=== PATIENT | male | born 1945 | race Caucasian/White ===

== ENCOUNTER 2017-11-24 05:28 | Inpatient (IN) ==
[2017-11-24] MEDS ORDERED: CEFAZOLIN 1 G INJECTION IVP ONE (05:42)
[2017-11-24 05:48] VITALS: BMI 29.7
[2017-11-24] MEDS ORDERED: LIDOCAINE 1% (10mg/ml) 2mL INJ PF SDV ID ONE (06:00)
[2017-11-24] MEDS ORDERED: FAMOTIDINE PB 20 MG/50 ML BAG IV ONE (06:00)
[2017-11-24] MEDS ORDERED: TRANEXAMIC ACID 1,000 MG in NS 100 ML IV ONE ×2 (06:00→07:00)
[2017-11-24] MEDS ORDERED: ACETAMINOPHEN 500 MG TABLET PO ONE (06:00)
[2017-11-24] MEDS ORDERED: DEXAMETHASONE 4 MG/ML INJECTION IVP ONE (06:00)
[2017-11-24] MEDS ORDERED: ONDANSETRON 4 MG/2 ML INJECTION IVP ONE (06:00)
[2017-11-24] MEDS ORDERED: METOCLOPRAMIDE 10mg/2ml INJECTION IVP ONE (06:00)
[2017-11-24] MEDS: LR 1,000 ML IV SCH ×3 (06:19→08:20)
[2017-11-24] MEDS ORDERED: VANCOMYCIN 1,000 MG INJECTION ONE (06:31)
--- NOTE | 2017-11-24 06:45 | Anesthesia Preoperative Report ---
Anesthesia Preoperative Record - Date and Time Date: 11/24/17 Preoperative Diagnosis: Lt TKA M17.12 primary osteoarthritis Proposed Procedure: left knee arthroplasty NPO Since Date: 11/23/17 NPO Since Time: 23:00 Allergies/Adverse Reactions: Allergies Allergy/AdvReac Type Severity Reaction Status Date / Time No Known Allergies Allergy Unknown Verified 11/24/17 06:01 - Vital Signs Vital Signs: Temperature 97.7 F 11/24/17 05:45 Pulse Rate 84 11/24/17 06:08 Respiratory Rate 15 11/24/17 05:45 Blood Pressure 135/88 11/24/17 05:45 Pulse Oximetry 92 11/24/17 06:18 Height and Weight: Height 1.78 m Weight 94 kg Body Mass Index 29.7 - Medications Inpatient Medications: Current Medications Epinephrine HCl 0.25 mg/Bupivacaine HCl 30 ml/Ketorolac Tromethamine 60 mg/ Sodium Chloride 62.25 mls @ 0 mls/hr OPSITE INTRAOP ONE; Per Protocol PRN Reason: Protocol Stop: 11/24/17 08:01 Tranexamic Acid 1,000 mg/ (Sodium Chloride) 110 mls @ 660 mls/hr IV INTRAOP ONE Stop: 11/24/17 07:09 Lactated Ringer's (Lactated Ringers) 1,000 mls @ 50 mls/hr IV .Q20H REPLACED BY [facility] Last Admin: 11/24/17 06:19 Dose: 50 mls/hr Isopropyl Alcohol (Nozin Nasal Swab) 1 each JEAN-PAUL Q1M REPLACED BY [facility] Stop: 11/24/17 13:03 Sodium Chloride (Iv Flush) 10 - 80 ml IV PRN PRN PRN Reason: Flushing Home Medications: Home Medications Medication Instructions Recorded Confirmed Type Albuterol HFA Inhaler [Ventolin 2 puff ORAL INH Q4H PRN #1 inhaler 04/18/1710/07 Rx Hfa 90 mcg/actuation] Claritin (Loratadine) 10 mg tablet 10 mg PO Q24H 04/23/17 11/23/17 History Flonase (Fluticasone) 50 mcg nasal 2 spray INTRANASAL DAILY PRN g 04/23/1710/07 History spray Lipitor (atorvastatin) 40 mg tablet 40 mg PO DAILY tab 04/23/17 11/23/17 History Mucinex (Guaifenesin) 1,200 mg 1,200 mg PO Q12H PRN 04/23/17 11/23/17 History tablet, ER 12 hr Tylenol Arthritis 650 mg 650 mg PO Q6HPRN PRN 04/23/17 11/23/17 History tablet,extended release ascorbic acid (vitamin C) 500 mg 500 mg PO DAILY tab 04/23/17 11/23/17 History tablet aspirin 81 mg tablet,delayed 81 mg PO DAILY tab 04/23/17 11/23/17 History release cxiqbyinndhkymqv-bylkpyjpk-zakleme 1 each PO Q4HPRN PRN each 04/23/17 11/23/17 History 2 mg-7.8 mg-325 mg efferves. tablet glucosamine-chondroitin 250 mg-200 2 tab PO DAILY tab 04/23/17 11/23/17 History mg tablet multivitamin tablet 1 tab PO QAM 04/23/17 11/23/17 History omega-3 fatty acids 500 mg capsule 500 mg PO DAILY cap 04/23/17 11/23/17 History vitamin B complex capsule 1 cap PO DAILY cap 04/23/17 11/23/17 History vitamin E (dl, acetate) 400 unit 400 unit PO DAILY cap 04/23/17 11/23/17 History capsule zinc 50 mg tablet 50 mg PO DAILY tab 04/23/17 11/23/17 History Mobic (Meloxicam) 7.5 mg tablet 7.5 mg PO BID PRN #180 tab 10/12/17 11/23/17 Rx Tiotropium Handihaler [Spiriva] 18 mcg INH HS 11/09/17 11/23/17 History Triderm (Triamcinolone acetonide 1 applicatio TOP BID 10 Days #30 g 11/23/1710/07 Rx 0.1 %) topical cream - Medical History Respiratory: Reports: Chronic Obstructive Pulmonary Disease (COPD) DENIES: Sleep Apnea Cardiovascular: Reports: High Cholesterol Gastrointestional: Reports: Gastroesophageal Reflux Disease, Ulcer (H Pylori treated years ago) Neuro/Musculoskeletal: Reports: Back Problems Renal/Endocrine: Reports: Other ('prediabetic') - Surgical History HEENT Surgeries: Reports: Tonsillectomy GI Surgery/Treatments: Reports: Hernia Repair (x2) Musculoskeletal Surgery/Tx: Reports: Orthopedic Surgery (right elbow; right hand surgery), Other (lumbar surgery with hardware) Anesthesia Reactions: Other (takes awile waking up ) Hx Family Anesthesia Reaction: No History of Motion Sickness: No - Social History Smoking Status: Current every day smoker Substance Use Type: does not use Alcohol Intake: current Alcohol Intake Frequency: holidays/special occasions only - Pertinent Findings Laboratory: CBC and BMP 11/24/17 05:52 11/24/17 05:52 BMP 11/24/17 05:52 Sodium 146 H Potassium 3.9 Chloride 109 H Carbon Dioxide 25 BUN 18.0 Creatinine 1.1 Glucose 104 Calcium 9.2 EKG: Sinus Rhythm - Physical Exam Respiratory Exam: Present: wheezing Cardiovascular Exam: Present: regular rate and rhythm, no murmur - Airway Assessment Mallampati Score: I TMD: 3 Fingerbreadths Neck Extension: fair Teeth: upper dentures Overall Assessment: no airway concerns - ASA ASA Score: 3 - Plan Anesthesia: General Inhalation Gases Regional/Trunk Block: Spinal - Discussion Discussion: Discussed risks/options/alternatives of anesthesia and questions answered. Patient consents. Nursing pain assessment noted. Attestation Statement: Prior to the delivery of any anesthetic medication, I examined the patient, developed the plan, obtained the patient's consent and discussed the risk and benefits of the procedure with the patient/guardian. - Additional Information Seen by Anesthesia: Yes
[2017-11-24] MEDS: NOZIN NASAL SWAB NAS SCH ×5 (06:49→21:24)
[2017-11-24] MEDS ORDERED: PROPOFOL 20 ML ONE (07:03)
[2017-11-24] MEDS ORDERED: FentaNYL 250 MCG/5 ML INJECTION ONE (07:03)
[2017-11-24] MEDS ORDERED: MIDAZOLAM 2mg/2ml INJECTION ONE ×2 (07:03→08:27)
[2017-11-24] MEDS ORDERED: DiphenhydrAMINE 50 MG/ML INJECTION ONE (07:05)
[2017-11-24] MEDS ORDERED: LIDOCAINE 2% (100mg/5mL) 5ml PF SDV ONE (07:06)
[2017-11-24] MEDS ORDERED: BUPIVACAINE 0.75%/DEXTROSE 8.5% SPINAL 2 ML AMPULE IJ ONE (07:06)
[2017-11-24] MEDS ORDERED: KETAMINE 500 MG/10 ML INJECTION ONE (07:10)
[2017-11-24] MEDS ORDERED: EPINEPHrine PF 0.25 MG, BUPIVACAINE 0.25% PF 30 ML, KETOROLAC INJ 60 MG in NS 30 ML OPSITE ONE (08:00)
--- NOTE | 2017-11-24 08:41 | History & Physical Update ---
- History and Physical Update Date: 11/24/17 Update: I evaluated this patient and found no changes in the history and clinical exam findings. The treatment plan and recommendations are also unchanged from the previous documentation. Anticipated hospital stay longer than 2 nights due to ASA 3, CPOD/Emphysema ( wheezing and coarse on admission), GERD, pre-diabetes. For this reason patient was changed to inpatient status.
--- NOTE | 2017-11-24 08:46 | Operative Note ---
- Procedure Preoperative Diagnosis: Left knee primary degenerative joint disease Postoperative Diagnosis: Same as preoperative diagnosis. Surgeon: Cheo Chaidez MD Computer Information Science Professor: Nathan Beltran Complications: None. Anesthesia: Spinal. Estimated Blood Loss: See Anesthesia Record. Fluids: Please see Anesthesia Record. Desciption of Procedure: Mr. Dailey and his left knee were identified and marked in the preoperative holding area. He was brought back to the operating suite. Spinal anesthetic was administered and he was placed supine on the operating table. The left lower extremity was prepped and draped in my normal sterile fashion. Timeout was performed. The Lucibel robotic arm was used during the surgery. He had a partially correctable varus deformity with a 7 flexion contracture. A standard anterior midline incision followed by medial parapatellar arthrotomy was performed. Anterior fat pad and meniscus were removed. The patella was everted and a patellar osteotomy was performed leaving 15 mm of bone. Tibial and femoral arrays and checkpoints were placed both within the original incision. The bone was then registered with the Lucibel robot. Osteophytes were removed and gaps were captured both 90 and 0 with correction. His knee was balanced by lacing the tibial component and 2 of varus in the femoral component and 1 of varus the femoral component was also externally rotated 2 degrees relative to the epicondylar axis. The Lucibel robotic arm was then used to assist with the bone cuts. Posterior osteophytes and remaining meniscus were removed. Trial components were placed. We used a 7 femur and a 6 tibia with a 9 mm spacer and a 35 patella. He tracked well and was well balanced throughout range of motion. The arrays were then removed and the knee exsanguinated and the tourniquet inflated to 250 mmHg. The tibia was then stamped the proper rotation. I then cemented the components into place and allowed them to cure in extension. During this time the tourniquet was let down and hemostasis was obtained with electrocautery. After the cement had cured the knee again was taken through range of motion and was well balanced and tracked well. After a final thorough irrigation with normal saline as well as Betadine 1 g vancomycin powder was placed into the knee joint. We then closed the capsule with #1 Vicryl. I then left my assistant chief train dispatcher closed the subcutaneous tissue with both 2-0 Vicryl in an interrupted fashion as well as a running 0 V-lock barbed suture. The subcutaneous tissue closed with a gaston Monoderm. Mediplex dressing will be placed and the patient will be taken back to the recovery room under the care of anesthesia.
[2017-11-24] MEDS ORDERED: VANCOMYCIN 1,000 MG INJECTION IAR ONE (08:50)
[2017-11-24] MEDS ORDERED: ROPIVACAINE 0.5% (5mg/ml) 30ml INJ ONE (09:00)
[2017-11-24] MEDS ORDERED: ALBUTEROL 2.5mg/3ml (0.083%) NEB AEROSOL PRN ×2 (09:16→10:03)
--- NOTE | 2017-11-24 09:32 | Anesthesia Procedure Note ---
Peripheral Nerve Blockade - Procedure Physician: Domenic Chaidez MD Date: 11/24/17 Surgical Procedure: left total knee arthroplasty Discussion: Discussed risks/options/alternatives of anesthesia and questions answered. Patient consents. Nursing pain assessment noted. Block Start: 09:20 Block Stop: 09:22 Blocked Employed: Adductor Canal Indication: Post-Operative Pain Approach: Left Side Confirmed Position: Supine Patient: Consent, Risks/Benefits Discussed, Informed, Post Block Act. Discussed IV Sedation: No Initial Vital Signs: Temperature 97.7 F 11/24/17 05:45 Temperature Source Oral 11/24/17 05:45 Pulse Rate 88 11/24/17 05:45 Respiratory Rate 15 11/24/17 05:45 Blood Pressure 135/88 11/24/17 05:45 Blood Pressure Mean 103 11/24/17 05:45 Blood Pressure Position Sitting 11/24/17 05:45 Pulse Oximetry 91 11/24/17 05:45 Oxygen Delivery Method 11/24/17 05:45 Post Vital Signs: Temperature 97.7 F 11/24/17 05:45 Pulse Rate 84 11/24/17 06:08 Respiratory Rate 15 11/24/17 05:45 Blood Pressure 135/88 11/24/17 05:45 Pulse Oximetry 92 11/24/17 06:18 Initial Pain Pain Score: 0 Post Block Pain Score: 0 Prep: Chlorhexadine/ETOH Ultrasound Used?: Yes - Injectate Ropivacaine (%): 0.5 Ropivacaine (mL): 15 Was Epi 1:200,000 Used?: No Injection: Injection made incrementally with constant monitoring and aspiration every ml
--- NOTE | 2017-11-24 09:33 | Anesthesia Postoperative Note ---
- Date and Time Date: 11/24/17 Time: 09:24 - Status Patient Participated in Evaluation: Patient Participated in Person Vital Signs: Temperature 97.7 F 11/24/17 05:45 Pulse Rate 84 11/24/17 06:08 Respiratory Rate 14 11/24/17 09:20 Blood Pressure 135/88 11/24/17 05:45 Pulse Oximetry 100 11/24/17 09:20 Respiratory Function: Airway Patent Cardiovascular Function: Regular Pulse EKG: Sinus Rhythm Pain Intensity: 0 Hydration: IV Infusing Complications During Recover: None Apparent - Follow-Up Instructions Instructions: Per Surgeon
--- NOTE | 2017-11-24 09:41 | XRay Report ---
Indication: postoperative image PROCEDURE: XR knee LT 2V: Encounter: Initial Comparison: September 07, 2017 Findings: Postoperative changes of left total knee replacement are seen. There is expected postoperative subcutaneous gas. No evidence of hardware failure or acute fracture. No retained radiopaque surgical instruments or sponges. Overlying material causing artifact. Impression: New left total knee prosthesis without evidence of immediate complication. .
[2017-11-24] MEDS ORDERED: MELOXICAM 7.5 MG TABLET PO PRN (09:52)
[2017-11-24] MEDS ORDERED: DiphenhydrAMINE 25 MG CAPSULE PO PRN (09:52)
[2017-11-24] MEDS ORDERED: LORazepam 1 MG TABLET PO PRN (09:52)
[2017-11-24] MEDS ORDERED: NOZIN NASAL SWAB NAS ONE (09:52)
[2017-11-24] MEDS ORDERED: DiphenhydrAMINE 50 MG/ML INJECTION IVP PRN (09:52)
[2017-11-24] MEDS ORDERED: GUAIFENESIN 1200 MG PO PRN (09:52)
[2017-11-24] MEDS ORDERED: ONDANSETRON 4 MG/2 ML INJECTION IVP PRN (09:52)
[2017-11-24] MEDS: NS 1,000 ML IV SCH ×2 (09:57→21:51)
[2017-11-24] MEDS ORDERED: GUAIFENESIN LA 600 MG TABLET PO PRN (10:10)
[2017-11-24] MEDS ORDERED: ALBUTEROL/IPRATROPIUM 2.5mg-0.5mg/3ml NEB AEROSOL PRN (11:07)
[2017-11-24] MEDS: Oxycodone *IR* 5 MG TABLET PO PRN ×4 (11:36→21:27)
[2017-11-24] MEDS: LORATADINE 10 MG TABLET PO SCH (11:43)
[2017-11-24] MEDS: ACETAMINOPHEN 325 MG TABLET PO SCH ×3 (12:24→20:01)
[2017-11-24] MEDS ORDERED: SALINE FLUSH 10ml SYRINGE IV PRN (13:00)
[2017-11-24] MEDS: CEFAZOLIN 2 G in NS 100 ML IV SCH ×2 (14:20→22:48)
[2017-11-24] MEDS ORDERED: Ipratropium Inh NEB 0.02% (0.5mg/2.5ml) AEROSOL SCH (15:00)
[2017-11-24] MEDS: DOCUSATE SODIUM 100 MG CAPSULE PO SCH (20:01)
[2017-11-24] MEDS: ASPIRIN *EC* 81 MG TABLET PO SCH (20:01)
[2017-11-24] MEDS ORDERED: ATORVASTATIN 40 MG TABLET PO SCH (21:00)
[2017-11-24] MEDS ORDERED: TIOTROPIUM 18mcg/cap HANDIHALER ORAL INH SCH (21:00)
[2017-11-24] MEDS ORDERED: SENNOSIDES 8.6 MG TABLET PO SCH (21:00)
[2017-11-24] MEDS: ALBUTEROL/IPRATROPIUM 2.5mg-0.5mg/3ml NEB AEROSOL SCH (22:21)
[2017-11-25] MEDS: Oxycodone *IR* 5 MG TABLET PO PRN ×2 (02:33→08:41)
[2017-11-25] MEDS: NOZIN NASAL SWAB NAS SCH (05:06)
[2017-11-25] MEDS ORDERED: ALBUTEROL/IPRATROPIUM 2.5mg-0.5mg/3ml NEB AEROSOL SCH (07:00)
[2017-11-25] MEDS: ALBUTEROL/IPRATROPIUM 2.5mg-0.5mg/3ml NEB AEROSOL SCH ×2 (07:07→12:34)
[2017-11-25 07:35] VITALS: O2SAT 95
--- NOTE | 2017-11-25 08:35 | Orthopedic Progress Note ---
Date: Date: 11/25/17 Time: 810 Subjective/Severity of Illness: Pt is seen on morning rounds. He had nasal congestion overnight that was fairly severe for him. It improved when he was out of his room and would worsen within minutes of going back in his room. Pt denies feeling SOA but just can't breathe through his nose. He also admits to feeling a little anxious. His stayed until about 4:30 this AM and pt said his anxiety worsened when she went home. Pt admits that he doesn't always use his inhalers at home. His says he coughs every night at home and the two of them don't agree on the frequency of his breathing treatments. Denies CP but has a chronic cough. He has been up and knee pain is not much of an issue. He has several cans of pop, coffee and water on his bedside table but he doesn' t remember drinking any of it. No confusion has been documented and he is clear on exam this AM. Orthopedic Exam Vital signs: Temperature 96.2 F L 11/25/17 07:34 Pulse Rate 65 11/25/17 07:34 Respiratory Rate 22 11/25/17 07:34 Blood Pressure 137/68 11/25/17 07:34 Pulse Oximetry 95 11/25/17 07:34 - Constitutional General Appearance: Present: alert, cooperative, no acute distress, other (Has nasal congestion.) - Respiratory Exam Present: non-labored, other (Reduced breath sounds.) - Cardiovascular Exam Present: Regular Rate/Rhythm, pedal pulses intact - Extremities Exam Present: pulses intact. Absent: calf tenderness - Dressing Dressing: dry, intact, no drainage - Integumentary Exam Present: pink, warm, dry - Neurological Exam Present: no deficits - Psychiatric Exam Present: alert, oriented, normal affect - Labs Result Diagrams: 11/25/17 04:05 11/25/17 04:05 Abnormal lab results 11/25/17 11/25/17 Range/Units 04:05 04:05 Hgb 11.2 L D (13.5-17.5) GM/DL Calcium 8.3 L D (8.4-10.2) MG/DL H & H 11/24/17 11/25/17 Range/Units 05:52 04:05 Hgb 13.3 L 11.2 L D (13.5-17.5) GM/DL Hct 40.3 L (41-53) % Orthopedic Assessment and Plan (1) Primary osteoarthritis of left knee Status: Acute Assessment and Plan: Aspirin protocol for VTE prophylaxis. SCD's. PT/OT services to improve independent function. Discharge Planning per Case Management. (2) Emphysema/COPD Status: Chronic Assessment and Plan: Check a CXR due to cough and increased use of albuterol / Duoneb. Continue inhalers. Add Afrin for nasal congestion. - Anticoagulation Therapy Anticoagulation: ASA 81 mg PO BID x6 weeks Hospital Course Summary Disclaimer: The visit summary below is not to be considered part of the above Progress Note.
[2017-11-25] MEDS: DOCUSATE SODIUM 100 MG CAPSULE PO SCH (08:40)
[2017-11-25] MEDS: ACETAMINOPHEN 325 MG TABLET PO SCH (08:40)
[2017-11-25] MEDS: LORATADINE 10 MG TABLET PO SCH (08:40)
[2017-11-25] MEDS: ASPIRIN *EC* 81 MG TABLET PO SCH (08:40)
--- NOTE | 2017-11-25 08:41 | XRay Report ---
Indication: Cough, COPD, reduced breath sounds. PROCEDURE: XR chest 1V: Encounter: Initial Comparison: October 28, 2017 Findings: The lungs are stable in appearance without new focal airspace consolidation. Small calcified granuloma in the right upper lobe. There is no pleural effusion or pneumothorax. The heart size, pulmonary vascularity and mediastinal contours are unchanged. IMPRESSION: Stable appearance of the chest without acute cardiopulmonary disease. .
[2017-11-25] MEDS ORDERED: FATTY ACIDS PO SCH (09:00)
[2017-11-25] MEDS ORDERED: Ipratropium Inh NEB 0.02% (0.5mg/2.5ml) AEROSOL SCH (09:00)
[2017-11-25] MEDS ORDERED: OMEGA-3 ACID ESTERS 1 GM CAPSULE PO SCH (09:00)
[2017-11-25] MEDS ORDERED: OMEGA PO SCH (09:00)
[2017-11-25] MEDS ORDERED: POLYETHYL GLYCOL 3350 17gm PACKET PO SCH (09:00)
[2017-11-25] MEDS ORDERED: SENNOSIDES 8.6 MG TABLET PO PRN (09:06)
[2017-11-25] MEDS ORDERED: OXYMETAZOLINE 0.05% NASAL SPRAY 15ml EA NOSTRIL PRN (09:06)
[2017-11-25 12:19] VITALS: BP 149/82; PULSE 104; TEMP 97.6
[2017-11-25 12:47] VITALS: RESP 16
--- NOTE | 2017-11-25 13:15 | Discharge Summary ---
Orthopedic Discharge Info Date of admission: 11/24/17 09:53 Primary care physician: Amanda Lan APRN Attending Physician: Domenic Chaidez MD Consults: 11/24/17 05:32 Consult to Anesthesiology [CONS] Routine Reason For Exam: Preoperative Assessment 11/24/17 09:52 Case Management Consult [CONS] Routine Reason For Exam: Discharge Planning DME-Walker [CONS] Routine Height: 5 ft 10 in Weight: 94 kg Total Joint Outpatient Therapy [CONS] Routine Comment: Remove dressing in 2 weeks - Discharge Diagnosis (1) Primary osteoarthritis of left knee Status: Acute (2) Emphysema/COPD Status: Chronic - Procedures Procedures: Left TKA - Laboratory Result Diagrams: 11/25/17 04:05 11/25/17 04:05 Laboratory: Abnormal lab results 11/25/17 11/25/17 Range/Units 04:05 04:05 Hgb 11.2 L D (13.5-17.5) GM/DL Calcium 8.3 L D (8.4-10.2) MG/DL H & H 11/24/17 11/25/17 Range/Units 05:52 04:05 Hgb 13.3 L 11.2 L D (13.5-17.5) GM/DL Hct 40.3 L (41-53) % Orthopedic Discharge HPI - HPI Comments This patient was admitted for elective surgical tx of end stage degenerative joint disease that failed to respond to conservative treatment. Further details of this is found in the admission H&P. Orthopedic Hospital Course Hospital course: 11/25/17 13:12 After appropriate preoperative clearance and signing of operative consent, the patient was given IV antibiotics, according to orthopedic protocol. The patient was taken to the operating room and underwent elective left total knee arthroplasty. Following surgery, antibiotics were discontinued less than 24 hours according to joint protocol. Aspirin was initiated and SCDs added for DVT prevention. The dressing was clean, dry, and intact. Pain control was obtained via multimodal approach. Bowel motivation addressed with scheduled and PRN medications. Early mobilization was initiated through PT services. Discharge arrangements made by a collaborative effort between the patient and Case Management. CXR was clear. Pt receive DuoNeb breathing treatments prn and albuterol scheduled. He is afebrile and lung sounds are clear. Will resume his home inhalers and f/u with PCP next week. Post hgb is 11.2 , BMP was normal. Follow-up is scheduled in 2-3 weeks. Discharge instructions given by orthopedic providers and nursing staff at discharge. Discharge condition was good. 11/25/17 13:14 Care extended to > 2 midnight stays?: No Discharge Plan - Med Rec/Dispo Referrals/Follow Up: Nathan Beltran PA [Physician Naval Architect] - 12/16/17 10:30 am Toribio Instructions: [facility] Postop Instructions Additional Instructions: [facility] AT THE [facility] ON 11/26/2017 AT 2: 00PM FOR PHYSICAL THERAPY EVAL. PHONE [phone] Prescriptions: New Acetaminophen [Tylenol] 650 mg PO QID tablet Docusate Sodium [Colace] 100 mg PO BID capsule Milk of Magnesia [Mom] 30 ml PO DAILY udc Oxycodone *IR* [Roxicodone *Ir*] 5 - 10 mg PO Q3H PRN #50 tablet PRN Reason: Breakthrough Pain PEG 3350 17gm PACKET [Miralax] 17 gm PO DAILY packet Oxymetazoline Nasal Serena [Afrin Nasal Serena] 2 spray EA NOSTRIL BID PRN bottle PRN Reason: Nasal Congestion Aspirin *EC* [Ecotrin] 81 mg PO BID tablet Continue Albuterol HFA Inhaler [Ventolin Hfa 90 mcg/actuation] 2 puff ORAL INH Q4H PRN #1 inhaler PRN Reason: Shortness Of Air/Wheezing Ergocalciferol (Vit. D2) [Vitamin D-2] 1 cap PO O Chlorpheniramine [Chlor-Trimeton] 4 mg PO DAILY PRN PRN Reason: Prn Orders Tiotropium Handihaler [Spiriva] 18 mcg INH HS multivitamin tablet 1 tab PO QAM omega-3 fatty acids 500 mg capsule 500 mg PO DAILY cap Claritin (Loratadine) 10 mg tablet 10 mg PO Q24H Lipitor (atorvastatin) 40 mg tablet 40 mg PO DAILY tab Mucinex (Guaifenesin) 1,200 mg tablet, ER 12 hr 1,200 mg PO Q12H PRN PRN Reason: Congestion Tylenol Arthritis 650 mg tablet,extended release 650 mg PO Q6HPRN PRN PRN Reason: Pain aspirin 81 mg tablet,delayed release 81 mg PO DAILY tab clhpmvaombcmyhqp-jnlrravjp-vrqnpik 2 mg-7.8 mg-325 mg efferves. tablet 1 each PO Q4HPRN PRN each PRN Reason: Congestion glucosamine-chondroitin 250 mg-200 mg tablet 2 tab PO DAILY tab vitamin B complex capsule 1 cap PO DAILY cap vitamin E (dl, acetate) 400 unit capsule 400 unit PO DAILY cap zinc 50 mg tablet 50 mg PO DAILY tab Flonase (Fluticasone) 50 mcg nasal spray 2 spray INTRANASAL DAILY PRN g PRN Reason: Congestion ascorbic acid (vitamin C) 500 mg tablet 500 mg PO DAILY tab Mobic (Meloxicam) 7.5 mg tablet 7.5 mg PO BID PRN #180 tab PRN Reason: pain Triderm (Triamcinolone acetonide 0.1 %) topical cream 1 applicatio TOP BID 10 Days #30 g - Disposition 01 Discharged Home, Self-Care - Dismissal Complete Discharge Instructions are:: Complete
[2017-11-26] MEDS ORDERED: BISACODYL 10 MG SUPPOSITORY RECTALLY SCH (20:00)
== END 2017-11-25 14:33 | disposition home or self-care (01) | DRG 470 ==
LOC: SUR 05:28 → NMC.PERIOP 05:29 → SRG 09:47
PROVIDERS: ADMIT Orthopaedic Surgery; ATTEND Orthopaedic Surgery